=== PATIENT | male | born 1975 | race Caucasian/White ===

== ENCOUNTER 2022-01-12 23:53 | Emergency (ER) | payer SELFPAY ==
[~2022-01-12] VITALS: Ht 165.1 cm; Wt 95.0 kg
[2022-01-13 00:15] VITALS: BP 120/84
[2022-01-13] MEDS ORDERED: IBUPROFEN 400MG TABLET PO ONE (01:00)
[2022-01-13] MEDS ORDERED: ACETAMINOPHEN 325MG TABLET PO ONE (01:00)
[2022-01-13] MEDS ORDERED: TOPUD PO (02:24)
[2022-01-13] MEDS ORDERED: IBUP-2028 MT (02:24)
[2022-01-13] MEDS ORDERED: MORP15TA67 MT (02:24)
== END 2022-01-13 01:24 | disposition home or self-care (01) ==
LOC: ER 23:53
DX: M25.561 Pain in right knee (principal); M25.571 Pain in right ankle and joints of right foot
CPT/HCPCS: 73562; 73610; 99284